=== PATIENT | female | born 1960 | race African-American/Black ===

== ENCOUNTER → 2016-12-13 | Outpatient (CLI) | payer OTHER | LOC: RAD 07:19 | PROVIDERS: ATTEND Physician Assistant | DX: M25.511 Pain in right shoulder (principal) ==

== ENCOUNTER → 2017-02-12 | Outpatient (CLI) | payer OTHER ==
[2017-02-12 10:58] LABS: ABSOLUTE EOSINOPHILS # (AUTO) 0.1 10^3/uL (0.0-0.6); ABSOLUTE LYMPHOCYTES (AUTO) 1.8 10^3/uL (0.5-4.7); ABSOLUTE MONOCYTES (AUTO) 0.4 10^3/uL (0.1-1.4); ABSOLUTE NEUT (AUTO) 1.6 10^3/uL (1.7-8.2); BASOPHILS % (AUTO) 0.4 % (0-2); EOSINOPHILS % (AUTO) 2.6 % (0-6); HEMATOCRIT 41.3 % (36.0-47.0); HEMOGLOBIN 13.6 g/dL (12.0-15.5); HGB HCT DIFFERENCE -0.5; LYMPHOCYTES % (AUTO) 47.6 % (13-45); MEAN CORPUSCULAR HEMOGLOBIN 29.7 pg (27.0-33.4); MEAN CORPUSCULAR HGB CONC 32.9 g/dL (32.0-36.0); MEAN CORPUSCULAR VOLUME 90 fl (80-97); MONOCYTES % (AUTO) 9.1 % (3-13); RED BLOOD COUNT 4.58 10^6/uL (3.72-5.28); RED CELL DISTRIBUTION WIDTH 13.6 % (11.5-14.0); SEGMENTED NEUTROPHILS % (AUTO) 40.3 % (42-78); WHITE BLOOD COUNT 3.9 10^3/uL (4.0-10.5)
[2017-02-12 11:25] LABS: ALANINE AMINOTRANSFERASE 26 U/L (9-52); ALBUMIN 4.2 g/dL (3.5-5.0); ALKALINE PHOSPHATASE 87 U/L (38-126); ANION GAP 10 (5-19); ASPARTATE AMINO TRANSFERASE 20 U/L (14-36); BILIRUBIN,TOTAL 0.6 mg/dL (0.2-1.3); BLOOD UREA NITROGEN 7 mg/dL (7-20); CALCIUM 10.2 mg/dL (8.4-10.2); CARBON DIOXIDE 27 mmol/L (22-30); CHLORIDE 104 mmol/L (98-107); CREATININE RESULT 0.64 mg/dL (0.52-1.25); GLUCOSE 126 mg/dL (75-110); POTASSIUM 4.3 mmol/L (3.6-5.0); SODIUM 140.9 mmol/L (137-145); TOTAL PROTEIN 7.5 g/dL (6.3-8.2)
== END ==
LOC: OD 10:04
PROVIDERS: ATTEND Physician Assistant
DX: Z01.810 Encounter for preprocedural cardiovascular examination (principal); Z11.2 Encounter for screening for other bacterial diseases
CPT/HCPCS: 36415; 80053; 85025; 87070

== ENCOUNTER → 2017-04-08 | Day surgery (SDC) | payer OTHER ==
[~2017-04-08] MED LIST: BUPIVACAINE HCL 0.5 % INJ/PF 30 ML SDV ONE; METHYLPREDNISOLONE ACETATE INJ 40 MG/1 ML ML ONE
== END ==
LOC: RAD 14:52
PROVIDERS: ATTEND Physician Assistant
PROC: 3E0U33Z Introduction of Anti-inflammatory into Joints, Percutaneous Approach (ICD-10-PCS; principal; 2017-04-08)
DX: M25.552 Pain in left hip (principal)
CPT/HCPCS: 73501; 20610; 77002; J1020

== ENCOUNTER → 2017-07-21 | Outpatient (CLI) | payer MEDICARE, OTHER ==
--- NOTE | 2017-07-21 10:52 | RADIOLOGY REPORT (SQ) ---
EXAM DESCRIPTION: U/S ABDOMEN LIMITED W/O DOP COMPLETED DATE/TIME: 07/21/2017 9:35 am REASON FOR STUDY: ABDOMINAL PAIN R19.01 RIGHT UPPER QUADRANT ABDOMINAL SWELLING, MASS AND LUM COMPARISON: None. TECHNIQUE: Dynamic and static grayscale images acquired of the abdomen and recorded on PACS. Additio nal selected color Doppler and spectral images recorded. LIMITATIONS: None. FINDINGS: PANCREAS: No masses. Visualized pancreatic duct normal caliber. LIVER: No masses. There is increased echogenicity in the liver consistent with fatty infiltration. LIVER VASCULATURE: Normal blood flow is identified in the portal vein. GALLBLADDER: No stones. Normal wall thickness. No pericholecystic fluid. ULTRASOUND-DETECTED DONATO'S SIGN: Negative. INTRAHEPATIC DUCTS AND COMMON DUCT: CBD and intrahepatic ducts normal caliber. No filling defects. INFERIOR VENA CAVA: Normal flow. AORTA: No aneurysm. Distal abdominal aorta was not visualized due to overlying bowel gas. RIGHT KIDNEY: 9.5 cm in length. . Normal echogenicity. No solid or suspicious masses. No hydronephr osis. No calcifications. PERITONEAL AND RIGHT PLEURAL SPACE: No ascites or effusions. OTHER: No other significant findings. IMPRESSION: Findings consistent with fatty infiltration of the liver. No other significant intra-ab dominal abnormalities were identified. Findings as noted above. TECHNICAL DOCUMENTATION: JOB ID: [id number] [employer]- All Rights Reserved
== END ==
LOC: RAD 08:20
PROVIDERS: ATTEND Specialist
DX: R19.01 Right upper quadrant abdominal swelling, mass and lump (principal)
CPT/HCPCS: 76705

== ENCOUNTER 2017-07-22 08:28 | Day surgery (SDC) | payer OTHER ==
--- NOTE | 2017-07-17 10:26 | HISTORY AND PHYSICAL E ---
History and Physical NAME: ARTIE CHRISTY : 1960 AGE: 56Y ADMITTED: 07/22/2017 ROOM: CHIEF COMPLAINT: Dysphagia, vomiting, choking, abdominal pain, constipation. HISTORY: Patient presented complaining of reflux and constipation. The patient is known to me. I saw her back in the year 2008, where she did have upper scope showing esophagitis, gastritis, duodenitis. The patient did have a colonoscopy regarding abdominal pain. Patient to undergo upper scope. Later on, consider colonoscopy as well. She did have left lower quadrant abdominal pain. The patient is known to have diabetes. Upper scope done, showing esophagitis, gastritis, duodenitis. She improved on PPI. PAST SURGICAL HISTORY: 1. Appendectomy. 2. She did have colonoscopy and upper scope, 2008. 3. Open heart. 4. Total hysterectomy. SOCIAL HISTORY: . She quit smoking. Drinks rarely. FAMILY HISTORY: Father's history unknown. Mom had diabetes. REVIEW OF SYSTEMS: CARDIAC: Hypertension. High cholesterol. RESPIRATORY: Shortness of breath, on positional. ENDOCRINE: Diabetes. GASTROINTESTINAL: Dysphagia, vomiting, choking, abdominal pain, constipation. MUSCULOSKELETAL: Arthritis in her hips, shoulder, and knee. PHYSICAL EXAMINATION: GENERAL: Pleasant, alert, oriented. VITAL SIGNS: Blood pressure is 100/60, pulse 80, respirations 20, temp is 98. HEAD, EYES, EARS, NOSE, THROAT: Normal. ABDOMEN: Soft. NEUROLOGIC: Exam negative. CONCLUSION: Reflux. PLAN: 1. Gallbladder ultrasound. 2. Upper scope. 3. Later on, consider colonoscopy. 4. Admit 07/22. DICTATING PHYSICIAN: DEMETRIUS REYES M.D. [id number] Y#: [id number] ID: [id number] JOB#: [id number] ACCT: [id number] cc:DEMETRIUS REYES M.D. >
[~2017-07-22 08:28] MED LIST changes: -BUPIVACAINE HCL 0.5 % INJ/PF 30 ML SDV ONE; +EPINEPHRINE INJ 1 MG/10 ML DISP.SYRIN ONE; +FENTANYL CITRATE INJ/PF 100 MCG/2 ML AMPUL ONE; +FLUMAZENIL INJ 0.5 MG/5 ML VIAL ONE; +GLUCAGON,HUMAN RECOMB 1 MG INJ ONE; +GLYCOPYRROLATE INJ 0.4 MG/2 ML VIAL ONE; +LIDOCAINE 2% JELLY 30 ML TUBE ONE; -METHYLPREDNISOLONE ACETATE INJ 40 MG/1 ML ML ONE; +MIDAZOLAM 2 MG/2 ML INJ ONE; +NALOXONE HCL INJ/PF 0.4 MG/1 ML SDV ONE; +ONDANSETRON HCL INJ/PF 4 MG/2 ML SDV ONE
--- NOTE | 2017-07-22 09:26 | OPERATIVE REPORT E ---
Operative Report NAME: ARTIE CHRISTY : 1960 AGE: 56Y DATE OF SURGERY: 07/22/2017 ROOM: PREOPERATIVE DIAGNOSES: 1. Abdominal pain. 2. Reflux. 3. Dysphagia. POSTOPERATIVE DIAGNOSES: 1. Esophagitis, mild. 2. Gastritis, mild. 3. Duodenitis, mild. PROCEDURE: 1. Esophagoscopy. 2. Gastroscopy. 3. Duodenoscopy. SURGEON: DEMETRIUS REYES M.D. ANESTHESIA: Versed 2, fentanyl 50. TISSUE REMOVED OR ALTERED: Gastric biopsy, H. pylori. DESCRIPTION OF PROCEDURE: Baby scope passed under guided vision. No difficulties. Esophagoscopy: Junction at 38. No hernia. No stricture. Mild esophagitis. Gastroscopy: Mild gastritis. No ulcers. Duodenoscopy: Mild duodenitis. No ulcers. Biopsy obtained, H. pylori. CONCLUSION: 1. Esophagitis. 2. Gastritis. 3. Duodenitis. 4. No strictures. 5. No ulcers. 6. No malignancy or erosive gastritis. PLAN: 1. Hold aspirin. 2. Awaiting biopsy results. 3. Patient needs to have colonoscopy in the next few weeks. DICTATING PHYSICIAN: DEMETRIUS REYES M.D. [id number] [facility]#: [id number] ID: [id number] JOB#: [id number] ACCT: [id number] cc:[facility], INTER[facility] [place]Shukri CEDILLO. DEMETRIUS REYES M.D. >
[2017-07-22 10:04] LABS: ABSOLUTE EOSINOPHILS # (AUTO) 0.1 10^3/uL (0.0-0.6); ABSOLUTE LYMPHOCYTES (AUTO) 1.5 10^3/uL (0.5-4.7); ABSOLUTE MONOCYTES (AUTO) 0.3 10^3/uL (0.1-1.4); ABSOLUTE NEUT (AUTO) 1.4 10^3/uL (1.7-8.2); BASOPHILS % (AUTO) 1.2 % (0-2); EOSINOPHILS % (AUTO) 2.1 % (0-6); HEMATOCRIT 40.8 % (36.0-47.0); HEMOGLOBIN 13.4 g/dL (12.0-15.5); HGB HCT DIFFERENCE -0.6; LYMPHOCYTES % (AUTO) 45.6 % (13-45); MEAN CORPUSCULAR HEMOGLOBIN 30.1 pg (27.0-33.4); MEAN CORPUSCULAR HGB CONC 32.9 g/dL (32.0-36.0); MEAN CORPUSCULAR VOLUME 92 fl (80-97); MONOCYTES % (AUTO) 8.5 % (3-13); RED BLOOD COUNT 4.46 10^6/uL (3.72-5.28); SEGMENTED NEUTROPHILS % (AUTO) 42.6 % (42-78); WHITE BLOOD COUNT 3.3 10^3/uL (4.0-10.5)
[2017-07-22 10:12] VITALS: BP 119/77
[2017-07-22 10:16] LABS: IRON 70.6 ug/dL (37-170)
[2017-07-22 10:48] LABS: CARCINOEMBRYONIC ANTIGEN 2.3 ng/mL (<3.0)
[2017-07-22 10:53] LABS: FERRITIN 38.8 ng/mL (11.1-264.0)
--- NOTE | 2017-07-22 12:14 | DISCHARGE SUMMARY E ---
Discharge Summary NAME: ARTIE CHRISTY : 1960 AGE: 56Y ADMITTED: 07/22/2017 DISCHARGED: 07/22/2017 HISTORY: Patient is a 56-year-old female who presented with dysphagia and reflux. She did have a hysterectomy. Known to have anemia, diabetes, sleep apnea. Today's upper scope shows no bleeding, no ulcers. Mild erosive gastritis. DISCHARGE PLAN: 1. Workup for anemia. 2. Consider colonoscopy. 3. Patient discharged on soft diet. 4. Hold aspirin. 5. Awaiting lab studies. 6. Consider colonoscopy in the next few days. DICTATING PHYSICIAN: DEMETRIUS REYES M.D. [id number] PHY#: [id number] ID: [id number] JOB#: [id number] ACCT: [id number] cc:[facility], INTERNAL MEDICINE DEMETRIUS MERCADO M.D. >
== END 2017-07-22 10:15 | disposition home or self-care (01) ==
LOC: END 08:28
PROVIDERS: ATTEND Specialist
PROC: 0DB68ZX Excision of Stomach, Via Natural or Artificial Opening Endoscopic, Diagnostic (ICD-10-PCS; principal; 2017-07-22 09:00)
DX: K29.50 Unspecified chronic gastritis without bleeding (principal); D64.9 Anemia, unspecified; E11.9 Type 2 diabetes mellitus without complications; I10 Essential (primary) hypertension; E78.00 Pure hypercholesterolemia, unspecified; M16.0 Bilateral primary osteoarthritis of hip; M19.019 Primary osteoarthritis, unspecified shoulder; M17.9 Osteoarthritis of knee, unspecified; Z87.891 Personal history of nicotine dependence
CPT/HCPCS: 43239; 36415; 82962; 82607; 82378; 82728; 83540; 85025; 88342 ×2; 88305 ×2; J2250; J3010; J1610; J2405; J0171; J2310; J3490

== ENCOUNTER → 2019-11-19 | Outpatient (CLI) | payer OTHER ==
--- NOTE | 2019-11-19 17:49 | WOMENS IMAGING REPORT ---
EXAM DESCRIPTION: U/S ABDOMEN LIMITED COMPLETED DATE/TIME: 11/19/2019 11:20 am REASON FOR STUDY: R10.13 ABDOMINAL PAIN R10.13 EPIGASTRIC PAIN COMPARISON: None. TECHNIQUE: Dynamic and static grayscale images acquired of the abdomen and recorded on PACS. Additio nal selected color Doppler and spectral images recorded. LIMITATIONS: None. FINDINGS: PANCREAS: No masses. No peripancreatic edema or fluid collections. LIVER: Echotexture is coarse with increased echogenicity consistent with fatty infiltration. LIVER VASCULATURE: Normal directional flow of the main portal vein and hepatic veins. GALLBLADDER: No stones. Normal wall thickness. No pericholecystic fluid. ULTRASOUND-DETECTED DONATO'S SIGN: Negative. INTRAHEPATIC DUCTS AND COMMON DUCT: CBD and intrahepatic ducts normal caliber. No filling defects. INFERIOR VENA CAVA: Normal flow. AORTA: 3.4 cm abdominal aortic aneurysm. RIGHT KIDNEY: Normal size. Normal echogenicity. No solid or suspicious masses. No hydronephros is. No calcifications. PERITONEAL AND RIGHT PLEURAL SPACE: No ascites or effusions. OTHER: No other significant finding. IMPRESSION: 1. 3.4 CM INFRARENAL ABDOMINAL AORTIC ANEURYSM. 2. FATTY INFILTRATION OF THE LIVER. NO OTHER SIGNIFICANT FINDINGS. TECHNICAL DOCUMENTATION: JOB ID: [id number] [employer]- All Rights Reserved Reading location - IP/workstation name: [email or web address]
== END ==
LOC: WI 10:20
PROVIDERS: ATTEND Internal Medicine Gastroenterology
DX: I71.4 Abdominal aortic aneurysm, without rupture (principal); R10.13 Epigastric pain; K76.0 Fatty (change of) liver, not elsewhere classified
CPT/HCPCS: 76705